=== PATIENT | male | born 1990 | race Caucasian/White ===

== ENCOUNTER 2018-02-22 18:16 | Emergency (ER) | payer OTHER | END 2018-02-22 20:39 | disposition home or self-care (01) | LOC: FTE 18:16 | DX: J40 Bronchitis, not specified as acute or chronic (principal) | CPT/HCPCS: 99284; Z7502 ==

== ENCOUNTER 2018-11-17 19:01 | Emergency (ER) | payer OTHER ==
[2018-11-17] MEDS: ACETAMINOPHEN 325 MG TAB PO (22:21)
[2018-11-17] MEDS: DIPHTH/TET/ACEL PERTUSS (ADULT) 0.5 ML VIAL IM* (22:22)
[2018-11-17] MEDS: LIDOCAINE 1% (MDV) 20 ML INJ SC (22:27)
== END 2018-11-17 23:30 | disposition home or self-care (01) ==
LOC: FTE 19:01
DX: S51.012A Laceration without foreign body of left elbow, initial encounter (principal); W25.XXXA Contact with sharp glass, initial encounter; Y92.9 Unspecified place or not applicable; Z23 Encounter for immunization
CPT/HCPCS: 12002; 73080-LT; 90471; 90715; 99283-25